=== PATIENT | female | born 1995 | race Caucasian/White ===

== ENCOUNTER → 2023-10-16 13:42 | Outpatient (REF) | payer BC, SELFPAY | LOC: HWRAD 13:42 | PROVIDERS: ATTENDING PHYSICIAN Nurse Practitioner Family; FAMILY PHYSICIAN Physician Assistant Medical | DX: N91.2 Amenorrhea, unspecified (principal) | CPT/HCPCS: 76830; 76856 ==

== ENCOUNTER 2024-05-12 19:13 | Emergency (ER) | payer SELFPAY ==
[2024-05-12 19:16] VITALS: BP 160/108
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
[2024-05-12] MEDS: TYLENOL 1000 MG PO (19:45)
[2024-05-12 21:14] VITALS: BP 137/96
== END 2024-05-12 21:20 | disposition home or self-care (01) ==
LOC: EMR 19:13
PROVIDERS: Nurse Practitioner; EMERGENCY PHYSICIAN Emergency Medicine; FAMILY PHYSICIAN Physician Assistant Medical
DX: O99.891 Other specified diseases and conditions complicating pregnancy (principal); R51.9 Headache, unspecified; O99.281 Endocrine, nutritional and metabolic diseases complicating pregnancy, first trimester; E03.9 Hypothyroidism, unspecified; V49.40XA Driver injured in collision with unspecified motor vehicles in traffic accident, initial encounter; Z3A.09 9 weeks gestation of pregnancy
CPT/HCPCS: 99284; 76801; 84702; 86900; 86901

== ENCOUNTER → 2024-06-23 07:41 | Outpatient (REF) | payer BC, SELFPAY | LOC: PNTC 07:41 | PROVIDERS: ATTENDING PHYSICIAN Student in an Organized Health Care Education/Training Program | DX: O99.210 Obesity complicating pregnancy, unspecified trimester (principal) | CPT/HCPCS: 76805 ==

== ENCOUNTER → 2024-07-21 08:44 | Outpatient (REF) | payer BC, SELFPAY | LOC: PNTC 08:44 | PROVIDERS: ATTENDING PHYSICIAN Student in an Organized Health Care Education/Training Program | DX: O99.210 Obesity complicating pregnancy, unspecified trimester (principal) | CPT/HCPCS: 76811 ==

== ENCOUNTER → 2024-08-18 08:33 | Outpatient (REF) | payer BC, SELFPAY | LOC: PNTC 08:33 | PROVIDERS: ATTENDING PHYSICIAN Student in an Organized Health Care Education/Training Program | DX: O99.280 Endocrine, nutritional and metabolic diseases complicating pregnancy, unspecified trimester (principal); O99.210 Obesity complicating pregnancy, unspecified trimester | CPT/HCPCS: 76816 ==

== ENCOUNTER → 2024-09-15 08:15 | Outpatient (REF) | payer BC, SELFPAY | LOC: PNTC 08:15 | PROVIDERS: ATTENDING PHYSICIAN Student in an Organized Health Care Education/Training Program | DX: Z34.90 Encounter for supervision of normal pregnancy, unspecified, unspecified trimester (principal) | CPT/HCPCS: 76816 ==

== ENCOUNTER 2024-10-05 14:03 | Observation (INO) | payer BC, SELFPAY ==
[2024-10-05 14:45] VITALS: BMI 43.5
[2024-10-05 14:55] LABS: % Basophils 0.3 % (0-2); % Eosinophils 0.7 % (0-6); % Immature Granulocytes 0.6 % (0-0.5); % Lymphocytes 17.3 % (20.5-51.1); % Neutrophils 74.1 % (42.2-75.2); Absolute Eosinophils 0.1 10^3/uL (0-0.7); Absolute Immature Granulocytes 0.1 10^3/uL (0-0.05); Absolute Lymphocytes 2.2 10^3/uL (1.2-3.4); Absolute Monocytes 0.9 10^3/uL (0.1-0.6); Absolute Neutrophils 9.3 10^3/uL (1.4-6.5); Hematocrit 34.4 % (37.0-47.0); Hemoglobin 11.8 g/dL (12.0-16.0); Mean Corp Hgb Conc. 34.3 g/dL (33.0-37.0); Mean Corpuscular Hgb 29.8 pg (27.0-31.0); Mean Corpuscular Volume 86.9 fL (81.0-99.0); Mean Platelet Volume 8.5 fL (7.4-10.4); Nucleated Red Blood Cells % 0 %; Platelet Count 292 10^3/uL (130-400); Red Blood Cell Count 3.96 10^6/uL (4.20-5.40); Red Cell Dist. Width 12.5 % (11.5-14.5); White Blood Cell Count 12.5 10^3/uL (4.8-10.8)
[2024-10-05 15:02] LABS: Urine Albumin 1+ (Neg - Trace); Urine Bilirubin Negative (Negative); Urine Character Clear (Clear); Urine Color Yellow; Urine Glucose Negative (Negative); Urine Ketone Negative (Negative); Urine Leukocyte Negative (Negative); Urine Nitrite Negative (Negative); Urine Occult Blood 1+ (Negative); Urine Specific Gravity 1.015 (<1.030); Urine Urobilinogen Negative (Neg - 1+); Urine pH 6.5 (5.0-9.0)
[2024-10-05 15:21] LABS: Urine Bacteria Moderate (Negative); Urine Red Blood Cell 0-2 /HPF (0-2); Urine Squamous Cell 26-30 /LPF (Few); Urine White Cell 0-2 /HPF (0-5)
[2024-10-05 15:30] LABS: ALT (SGPT) 16 U/L (0-35); AST (SGOT) 17 U/L (14-36); Albumin 3.4 g/dl (3.5-5.0); Alkaline Phosphatase 95 U/L (38-126); Blood Urea Nitrogen 11 mg/dl (7-17); Calcium 10.1 mg/dl (8.4-10.2); Carbon Dioxide 25 mmol/L (22-30); Chloride 105 mmol/L (98-107); Estimated Creatinine Clearance > 125 ml/min; Glucose 103 mg/dl (70-99); Potassium 4.5 mmol/L (3.5-5.1); Sodium 137 mmol/L (135-145); Total Bilirubin 0.3 mg/dl (0.2-1.3); Total Protein 6.4 g/dl (6.3-8.2); eGFR > 60.00
[2024-10-05 16:02] LABS: Protein/creatinine Ratio 0.1; Urine Protein 13 mg/dl
== END 2024-10-05 16:30 | disposition home or self-care (01) ==
LOC: PNTC-IN 14:03
PROVIDERS: ADMITTING PHYSICIAN Obstetrics & Gynecology
DX: O26.893 Other specified pregnancy related conditions, third trimester (principal); Z34.03 Encounter for supervision of normal first pregnancy, third trimester; Z3A.31 31 weeks gestation of pregnancy; H43.399 Other vitreous opacities, unspecified eye
CPT/HCPCS: 80053; 81003; 81015; 82570; 84156; 85025; 86850; 86900; 86901; G0378

== ENCOUNTER → 2024-10-13 08:45 | Outpatient (REF) | payer BC, SELFPAY | LOC: PNTC 08:45 | PROVIDERS: ATTENDING PHYSICIAN Student in an Organized Health Care Education/Training Program | DX: O99.210 Obesity complicating pregnancy, unspecified trimester (principal) | CPT/HCPCS: 76816 ==

== ENCOUNTER → 2024-10-27 08:54 | Outpatient (REF) | payer BC, SELFPAY | LOC: PNTC 08:54 | PROVIDERS: ATTENDING PHYSICIAN Student in an Organized Health Care Education/Training Program | DX: O99.210 Obesity complicating pregnancy, unspecified trimester (principal) | CPT/HCPCS: 76815 ==

== ENCOUNTER → 2024-11-03 08:47 | Outpatient (REF) | payer BC, SELFPAY | LOC: PNTC 08:47 | PROVIDERS: ATTENDING PHYSICIAN Student in an Organized Health Care Education/Training Program | DX: O99.210 Obesity complicating pregnancy, unspecified trimester (principal) | CPT/HCPCS: 59025; 76815 ==

== ENCOUNTER → 2024-11-10 08:45 | Outpatient (REF) | payer BC, SELFPAY | LOC: PNTC 08:45 | PROVIDERS: ATTENDING PHYSICIAN Student in an Organized Health Care Education/Training Program | DX: O99.210 Obesity complicating pregnancy, unspecified trimester (principal) | CPT/HCPCS: 59025; 76816 ==

== ENCOUNTER → 2024-11-17 08:51 | Outpatient (REF) | payer BC, SELFPAY | LOC: PNTC 08:51 | PROVIDERS: ATTENDING PHYSICIAN Student in an Organized Health Care Education/Training Program | DX: O99.210 Obesity complicating pregnancy, unspecified trimester (principal) | CPT/HCPCS: 59025; 76815 ==

== ENCOUNTER → 2024-11-24 08:46 | Outpatient (REF) | payer BC, SELFPAY | LOC: PNTC 08:46 | PROVIDERS: ATTENDING PHYSICIAN Student in an Organized Health Care Education/Training Program | DX: O99.210 Obesity complicating pregnancy, unspecified trimester (principal) | CPT/HCPCS: 59025; 76815 ==

== ENCOUNTER 2024-11-30 19:28 | Inpatient (IN) | payer BC, SELFPAY ==
[2024-11-30 20:04] VITALS: BP 139/80; BMI 46.1
[2024-11-30] MEDS: CYTOTEC 25 MICROGRAM VAG (21:39)
[2024-11-30 21:49] LABS: % Basophils 0.2 % (0-2); % Eosinophils 0.6 % (0-6); % Immature Granulocytes 0.7 % (0-0.5); % Lymphocytes 20.2 % (20.5-51.1); % Monocytes 7.5 % (1.7-9.3); % Neutrophils 70.8 % (42.2-75.2); Absolute Eosinophils 0.1 10^3/uL (0-0.7); Absolute Immature Granulocytes 0.1 10^3/uL (0-0.05); Absolute Lymphocytes 2.8 10^3/uL (1.2-3.4); Absolute Monocytes 1.1 10^3/uL (0.1-0.6); Hematocrit 34.3 % (37.0-47.0); Hemoglobin 11.5 g/dL (12.0-16.0); Mean Corp Hgb Conc. 33.5 g/dL (33.0-37.0); Mean Corpuscular Hgb 29.2 pg (27.0-31.0); Mean Corpuscular Volume 87.1 fL (81.0-99.0); Mean Platelet Volume 9.2 fL (7.4-10.4); Nucleated Red Blood Cells % 0 %; Platelet Count 329 10^3/uL (130-400); Red Blood Cell Count 3.94 10^6/uL (4.20-5.40); Red Cell Dist. Width 12.8 % (11.5-14.5); White Blood Cell Count 14.1 10^3/uL (4.8-10.8)
[2024-11-30] MEDS: CLEOCIN 50 IV (21:58)
[2024-11-30] MEDS: TUMS CHEWABLE TABLET 400 MG PO (21:58)
[2024-12-01] MEDS: CYTOTEC 50 MICROGRAM PO ×2 (02:00→06:03)
[2024-12-01] MEDS: SYNTHROID 50 MCG PO (06:03)
[2024-12-01] MEDS: CLEOCIN 50 IV ×3 (06:03→21:59)
[2024-12-01] MEDS: PRENATAL PLUS 1 TABLET PO (07:51)
[2024-12-01] MEDS: VITAMIN D3 (cholecalciferol) 50 MCG PO (07:51)
[2024-12-01] MEDS: LOW STRENGTH ASPIRIN 81 MG PO (07:51)
[2024-12-01 13:23] LABS: Hematocrit 34.9 % (37.0-47.0); Hemoglobin 12.1 g/dL (12.0-16.0); Mean Corp Hgb Conc. 34.7 g/dL (33.0-37.0); Mean Corpuscular Hgb 29.6 pg (27.0-31.0); Mean Corpuscular Volume 85.3 fL (81.0-99.0); Mean Platelet Volume 8.8 fL (7.4-10.4); Platelet Count 301 10^3/uL (130-400); Red Blood Cell Count 4.09 10^6/uL (4.20-5.40); White Blood Cell Count 12.4 10^3/uL (4.8-10.8)
[2024-12-01 13:50] LABS: ALT (SGPT) 14 U/L (0-35); AST (SGOT) 22 U/L (14-36); Albumin 3.7 g/dl (3.5-5.0); Alkaline Phosphatase 136 U/L (38-126); Blood Urea Nitrogen 12 mg/dl (7-17); Calcium 9.9 mg/dl (8.4-10.2); Carbon Dioxide 19 mmol/L (22-30); Chloride 109 mmol/L (98-107); Estimated Creatinine Clearance > 125 ml/min; Glucose 105 mg/dl (70-99); Potassium 4.6 mmol/L (3.5-5.1); Sodium 138 mmol/L (135-145); Total Bilirubin 0.4 mg/dl (0.2-1.3); Total Protein 6.8 g/dl (6.3-8.2); eGFR > 60.00
[2024-12-01] MEDS: CYTOTEC PO ×4 (14:15→23:55)
[2024-12-01] MEDS: FENTANYL/BUPIVACAINE 100 EPIDURAL ×2 (15:35→22:37)
[2024-12-01] MEDS: SUBLIMAZE 100 MCG EPIDURAL (15:35)
[2024-12-01] MEDS: TRANDATE IV (19:32)
[2024-12-01] MEDS: LR 1000 IV (20:32)
[2024-12-01] MEDS: MAGNESIUM SULFATE 100 IV (20:33)
[2024-12-01] MEDS: MAGNESIUM SULFATE 40 GRAM 1000 IV (21:01)
[2024-12-01] MEDS: TRANDATE 20 MG IV (21:12)
[2024-12-01] MEDS: TRANDATE 40 MG IV (22:18)
[2024-12-02] MEDS: PITOCIN 30 UNITS/NSS 500 ML IV ×2 (02:50→08:12)
[2024-12-02] MEDS: FENTANYL/BUPIVACAINE 100 EPIDURAL (05:44)
[2024-12-02] MEDS: CLEOCIN 50 IV (05:57)
[2024-12-02] MEDS: HEMABATE 250 MCG IM (06:25)
[2024-12-02] MEDS: TRANEXAMIC ACID 100 IV (06:26)
[2024-12-02] MEDS: CYTOTEC 800 MCG RECTAL (06:28)
[2024-12-02 07:15] LABS: % Basophils 0.2 % (0-2); % Immature Granulocytes 1.2 % (0-0.5); % Lymphocytes 8.9 % (20.5-51.1); % Monocytes 6.6 % (1.7-9.3); % Neutrophils 83.1 % (42.2-75.2); Absolute Immature Granulocytes 0.1 10^3/uL (0-0.05); Absolute Monocytes 0.7 10^3/uL (0.1-0.6); Hematocrit 44.1 % (37.0-47.0); Hemoglobin 14.4 g/dL (12.0-16.0); Mean Corp Hgb Conc. 32.7 g/dL (33.0-37.0); Mean Corpuscular Hgb 29.2 pg (27.0-31.0); Mean Corpuscular Volume 89.5 fL (81.0-99.0); Mean Platelet Volume 9.2 fL (7.4-10.4); Nucleated Red Blood Cells % 0 %; Platelet Count 192 10^3/uL (130-400); Red Blood Cell Count 4.93 10^6/uL (4.20-5.40); Red Cell Dist. Width 13.2 % (11.5-14.5); White Blood Cell Count 10.8 10^3/uL (4.8-10.8)
[2024-12-02] MEDS: LR 1000 IV (08:11)
[2024-12-02] MEDS: SYNTHROID 50 MCG PO (08:24)
[2024-12-02] MEDS: DILAUDID 2 MG PO (08:24)
[2024-12-02 08:34] LABS: Hematocrit 31.4 % (37.0-47.0); Hemoglobin 10.9 g/dL (12.0-16.0); Mean Corp Hgb Conc. 34.7 g/dL (33.0-37.0); Mean Corpuscular Hgb 29.9 pg (27.0-31.0); Mean Corpuscular Volume 86.3 fL (81.0-99.0); Platelet Count 287 10^3/uL (130-400); Red Blood Cell Count 3.64 10^6/uL (4.20-5.40); Red Cell Dist. Width 13.1 % (11.5-14.5); White Blood Cell Count 22.1 10^3/uL (4.8-10.8)
[2024-12-02 08:35] LABS: % Basophils 0.1 % (0-2); % Immature Granulocytes 0.7 % (0-0.5); % Lymphocytes 5.7 % (20.5-51.1); % Monocytes 6.3 % (1.7-9.3); % Neutrophils 87.2 % (42.2-75.2); Absolute Immature Granulocytes 0.2 10^3/uL (0-0.05); Absolute Lymphocytes 1.3 10^3/uL (1.2-3.4); Absolute Monocytes 1.4 10^3/uL (0.1-0.6); Absolute Neutrophils 19.3 10^3/uL (1.4-6.5); Nucleated Red Blood Cells % 0 %
[2024-12-02 08:41] LABS: APTT 25.8 Sec (23.4-35.0); Fibrinogen 523 MG/DL (199-459); INR 1.07; PT 14.3 Sec (11.4-14.6)
[2024-12-02 08:49] LABS: ALT (SGPT) 13 U/L (0-35); AST (SGOT) 26 U/L (14-36); Albumin 3.1 g/dl (3.5-5.0); Alkaline Phosphatase 135 U/L (38-126); Blood Urea Nitrogen 17 mg/dl (7-17); Calcium 8.8 mg/dl (8.4-10.2); Carbon Dioxide 17 mmol/L (22-30); Chloride 109 mmol/L (98-107); Estimated Creatinine Clearance > 125 ml/min; Glucose 113 mg/dl (70-99); Magnesium 4.8 mg/dl (1.6-2.3); Phosphorus 5.5 mg/dl (2.5-4.5); Potassium 4.2 mmol/L (3.5-5.1); Sodium 135 mmol/L (135-145); Total Bilirubin 0.5 mg/dl (0.2-1.3); Total Protein 5.7 g/dl (6.3-8.2); eGFR > 60.00
[2024-12-02] MEDS: PRENATAL PLUS PO (17:38)
[2024-12-02] MEDS: LR IV (17:39)
[2024-12-02] MEDS: TRANDATE 200 MG PO (20:25)
[2024-12-03] MEDS: SYNTHROID 50 MCG PO (06:24)
[2024-12-03 06:28] LABS: Hematocrit 22.8 % (37.0-47.0); Hemoglobin 7.9 g/dL (12.0-16.0)
[2024-12-03] MEDS: PRENATAL PLUS 1 TABLET PO (07:42)
[2024-12-03] MEDS: SENOKOT-S 1 TABLET PO (07:42)
[2024-12-03] MEDS: TRANDATE 200 MG PO ×2 (07:42→19:55)
[2024-12-03] MEDS: MOTRIN 600 MG PO (19:55)
[2024-12-03] MEDS: FEOSOL 325 MG PO (19:55)
[2024-12-04] MEDS: MOTRIN 600 MG PO (04:40)
[2024-12-04] MEDS: SYNTHROID 50 MCG PO (05:43)
[2024-12-04] MEDS: TRANDATE 200 MG PO (08:06)
[2024-12-04] MEDS: SENOKOT-S 1 TABLET PO (08:07)
[2024-12-04] MEDS: PRENATAL PLUS 1 TABLET PO (08:07)
[2024-12-04] MEDS: FEOSOL 325 MG PO (08:07)
[2024-12-06 14:39] LABS: Syphilis/T. pallidum Ab Reflex Negative (Negative)
== END 2024-12-04 11:44 | disposition home or self-care (01) | DRG 768 ==
LOC: LDRP 19:28
PROVIDERS: Obstetrics & Gynecology; ADMITTING PHYSICIAN Obstetrics & Gynecology; FAMILY PHYSICIAN Physician Assistant Medical
PROC: 3E0P7VZ Introduction of Hormone into Female Reproductive, Via Natural or Artificial Opening (ICD-10-PCS; 2024-11-30)
PROC: 10907ZC Drainage of Amniotic Fluid, Therapeutic from Products of Conception, Via Natural or Artificial Opening (ICD-10-PCS; 2024-12-01)
PROC: 0W3R7ZZ Control Bleeding in Genitourinary Tract, Via Natural or Artificial Opening (ICD-10-PCS; 2024-12-02)
PROC: 30233N1 Transfusion of Nonautologous Red Blood Cells into Peripheral Vein, Percutaneous Approach (ICD-10-PCS; 2024-12-02)
PROC: 0KQM0ZZ Repair Perineum Muscle, Open Approach (ICD-10-PCS; 2024-12-02)
PROC: 10E0XZZ Delivery of Products of Conception, External Approach (ICD-10-PCS; 2024-12-02)
DX: O36.63X0 Maternal care for excessive fetal growth, third trimester, not applicable or unspecified (principal); Z37.0 Single live birth; Z3A.39 39 weeks gestation of pregnancy; O70.1 Second degree perineal laceration during delivery; O99.824 Streptococcus B carrier state complicating childbirth; O14.14 Severe pre-eclampsia complicating childbirth; O90.81 Anemia of the puerperium
CPT/HCPCS: 88307; 36415; 80053; 83735; 84100; 85014; 85018; 85025; 85027; 85384; 85610; 85730; 86780; 86850; 86900; 86901; 86920; P9016